=== PATIENT | female | born 1965 | race Caucasian/White ===

== ENCOUNTER 2018-10-12 09:02 | Day surgery (SDC) | payer OTHER ==
[2018-10-12] MEDS ORDERED: FENTAnyl 50 MCG/ML VIAL (11:25)
[2018-10-12] MEDS ORDERED: MIDAZOLAM 1 MG/ML 2 ML INJ ×3 (11:26)
== END 2018-10-12 15:55 | disposition home or self-care (01) ==
LOC: GIL 09:02
DX: R19.4 Change in bowel habit (principal); K64.8 Other hemorrhoids; K21.9 Gastro-esophageal reflux disease without esophagitis; E03.9 Hypothyroidism, unspecified
CPT/HCPCS: 43239; 88305; 88312